=== PATIENT | female | born 1990 | race Caucasian/White ===

== ENCOUNTER 2017-04-20 23:55 | Emergency (ER) | payer OTHER ==
[~2017-04-20] VITALS: Ht 167.6 cm; Wt 107.5 kg
[~2017-04-20 23:55] MED LIST: NITR-58 PO; OMEP20CA16 PO
[2017-04-20 23:59] VITALS: Ht 167.6 cm; Wt 107.5 kg
[2017-04-21 01:27] LABS: URINE BLOOD (Dip) POC 1+ (NEGATIVE)
[2017-04-21 01:42] LABS: ADD SCAN DIFF NO
[2017-04-21 01:45] LABS: BASOPHIL # 0.1 10^3/ul (0.0-0.1); BASOPHILS % 0.8 % (0.0-2.0); EOSINOPHILS # 0.2 10^3/ul (0.0-0.5); HEMATOCRIT 34.4 % (37.0-47.0); HEMOGLOBIN 10.1 g/dl (12.0-16.0); LYMPHOCYTES # 2.6 10^3/ul (0.8-2.9); LYMPHOCYTES % 25.7 % (15.0-51.0); MEAN CORPUSCULAR HGB CONC 29.4 g/dl (32.0-37.0); MEAN CORPUSCULAR VOLUME 71.4 fl (82.0-101.0); MEAN PLATELET VOLUME 9.4 fl (7.4-10.4); MONOCYTE # 0.7 10^3/ul (0.3-0.9); MONOCYTES % 6.7 % (0.0-11.0); NEUTROPHIL # 6.4 10^3/ul (1.6-7.5); NEUTROPHILS % 64.5 % (39.0-77.0); PLATELET COUNT 410 10^3/UL (140-415); RED BLOOD COUNT 4.82 10^6/ul (4.20-5.40); RED CELL DISTRIBUTION WIDTH 17.6 % (11.5-14.5)
[2017-04-21] MEDS ORDERED: AMOX1TAB10 PO (01:49)
[2017-04-21] MEDS ORDERED: IBUP-1542 PO (01:50)
[2017-04-21] MEDS ORDERED: NPH10OT LEFT EAR (01:50)
--- NOTE | 2017-04-21 01:54 | ERD ---
ER Documentation Chief Complaint Date/Time DATE: 04/21/17 TIME: 01:50 Chief Complaint left ear pain radiating to face ; pt has hx of ear infx on left ear (VALERIA HERNANDEZ) HPI This is a 26-year-old female presents to the ER with left ear pain that radiates to the back of her ear that started earlier today. Patient states that pain is severe and intermittent. It is described as a shooting throbbing pain. Patient denies any fevers or chills. She denies any discharge from her ear. Patient states that she is having difficulty in hearing however denies tinnitus. She denies any dizziness. Patient last normal menstrual period was this week. She denies any recent cough or cold symptoms. She denies any headache. Patient denies any dental caries or dental pain. She denies any mouth pain. (VALERIA HERNANDEZ) ROS 12 point review of systems was done, all negative except per HPI. (VALERIA HERNANDEZ) Medications Home Meds Active Scripts Ibuprofen* (Motrin*) 600 Mg Tab, 600 MG PO Q6, #30 TAB Prov:VALERIA HERNANDEZ 04/21/17 Neomycin/Polymyxin/Hydrocort* (Cortisporin* Otic) 10 Ml Susp, 4 DROP LEFT EAR QID for 7 Days, EA Prov:VALERIA HERNANDEZ 04/21/17 Amoxicillin/Potassium Clav (Amox-Clav 875-125 mg Tablet) 875-125 mg Tab, 1 TAB PO BID for 10 Days, #20 TAB Prov:VALERIA HERNANDEZ 04/21/17 Nitrofurantoin Monohyd Macrocr* (Macrobid*) 100 Mg Capsr, 100 MG PO HS for 7 Days Prov:RASHI ARAUZ NP 03/17/15 Omeprazole* (Omeprazole*) 20 Mg Capsule.dr, 20 MG PO DAILY, #30 CAP Prov:RASHI ARAUZ NP 03/17/15 Allergies Allergies: Coded Allergies: No Known Allergy (Unverified , 08/11/14) PMhx/Soc Medical and Surgical Hx: pt denies Medical Hx, pt denies Surgical Hx History of Surgery: No Anesthesia Reaction: No Hx Neurological Disorder: No Hx Respiratory Disorders: No Hx Cardiac Disorders: No Hx Psychiatric Problems: No Hx Miscellaneous Medical Probl: No Hx Alcohol Use: No Hx Substance Use: No Hx Tobacco Use: Yes Smoking Status: Current some day smoker (VALERIA HERNANDEZ) Physical Exam Vitals Vital Signs Date Time Temp Pulse Resp B/P Pulse Ox O2 Delivery O2 Flow Rate FiO2 04/20/17 23:59 99.3 105 20 141/78 99 (RASHI ARAUZ NP) Physical Exam GENERAL: The patient is well developed and appropriate for usual state of health , in no apparent distress. HEENT: Atraumatic. Conjunctivae are pink. Pupils equal, round, and reactive to light. Extraocular muscles are grossly intact. Left external ear canal is red and swollen, tender when inspecting with ear speculum. Positive tragus tenderness, pain with pinna and auricle manipulation. Positive mastoid tenderness. The oropharynx is clear with no erythema or exudates. CHEST: Clear to auscultation bilaterally. There are no rales, wheezes or rhonchi. HEART: Regular rate and rhythm. No murmurs, clicks, rubs or gallops. NEURO: Alert and oriented. (VALERIA HERNANDEZ) Result Diagram: 04/21/1711404/21/17 011 Results 24 hrs Laboratory Tests Test 04/21/17 01:15 04/21/17 01:32 White Blood Count 10.010^3/ul Red Blood Count 4.8210^6/ul Hemoglobin 10.1g/dl Hematocrit 34.4% Mean Corpuscular Volume 71.4fl Mean Corpuscular Hemoglobin 21.0pg Mean Corpuscular Hemoglobin Concent 29.4g/dl Red Cell Distribution Width 17.6% Platelet Count 42191^3/UL Mean Platelet Volume 9.4fl Neutrophils % 64.5% Lymphocytes % 25.7% Monocytes % 6.7% Eosinophils % 2.0% Basophils % 0.8% Nucleated Red Blood Cells % 0.0/100WBC Neutrophils # 6.410^3/ul Lymphocytes # 2.610^3/ul Monocytes # 0.710^3/ul Eosinophils # 0.210^3/ul Basophils # 0.110^3/ul Nucleated Red Blood Cells # 0.010^3/ul Sodium Level 135mmol/L Potassium Level 3.5mmol/L Chloride Level 99mmol/L Carbon Dioxide Level 26mmol/L Anion Gap 14 Blood Urea Nitrogen 14mg/dl Creatinine 0.68mg/dl Glucose Level 101mg/dl Calcium Level 9.9mg/dl Total Bilirubin 0.1mg/dl Direct Bilirubin 0.00mg/dl Indirect Bilirubin 0.1mg/dl Aspartate Amino Transf (AST/SGOT) 26IU/L Alanine Aminotransferase (ALT/SGPT) 49IU/L Alkaline Phosphatase 78IU/L Total Protein 9.2g/dl Albumin 5.1g/dl Globulin 4.10g/dl Albumin/Globulin Ratio 1.24 Bedside Urine pH (LAB) 6.5 Bedside Urine Protein (LAB) Negative Bedside Urine Glucose (UA) Negative Bedside Urine Ketones (LAB) Negative Bedside Urine Blood 1+ Bedside Urine Nitrite (LAB) Negative Bedside Urine Leukocyte Esterase (L Negative Current Medications Medications (Trade) Dose Ordered Sig/Compa Route PRN Reason Start Time Stop Time Status Last Admin Dose Admin Sodium Chloride (NS) 100 ml @ ud STK-MED ONCE .ROUTE 04/21/17 02:35 04/21/17 02:36 DC 04/21/17 02:52 Iohexol (Omnipaque 300mg/ ml) 150 ml STK-MED ONCE .ROUTE 04/21/17 02:35 04/21/17 02:36 DC 04/21/17 02:52 PROCEDURE: CT facial bones with contrast. CLINICAL INDICATION: Left mastoid pain TECHNIQUE: CT of the facial bones was obtained following the intravenous administration of 100 cc Omnipaque 300. Coronal and sagittal re-formations were provided. The administered radiation dose was CTDI vol = 54 mGy, DLP = 990 mGy -cm. COMPARISON: No pertinent prior examinations were submitted for comparison. FINDINGS: There is some skin thickening within the left external auditory canal. A small amount of fluid is noted in the left middle ear cavity. There is some minimal fluid within the left mastoid air cells. There are no destructive osseous changes. The globes are intact. The extraocular muscles and optic nerve complexes are symmetric and normal in caliber. The paranasal sinuses are well aerated. The visualized portions of the brain are unremarkable. No destructive osseous lesion is identified.There is no acute fracture. IMPRESSION: Minimal fluid in the left middle ear cavity and mastoid air cells presumably due to otitis media and possibly early non-coalescent mastoiditis. RPTAT: HIKT .Cheng Parish MD, Date Time Electronically viewed and signed by .Cheng Parish MD, on 04/21/2017 03:11 .T/ CC: VALERIA HERNANDEZ I discussed this patient's case with Dr. Kaye, reviewed patient's CT scan of the facial area, patient has otitis media with possible early non-coalescent mastoiditis (mild mastoiditis), outpatient management is appropriate at this time as per Dr. Kaye's recommendation, and he recommended to give IV Rocephin 2 g here in emergency department, and sent patient home with Augmentin. They and Melissa [facility]ONA already wrote prescriptions for Augmentin, was advised to see ENT specialist for further evaluation and possible management. Patient was advised to return to emergency Department for any worsening symptoms. Patient tolerated medication well. Patient does not have any symptoms of any sepsis at home. Strict return to ER precautions for any worsening symptoms. (RASHI ARAUZ NP) Procedures/MDM This is a 26-year-old female presents to the ER with left ear pain, patient does have inflammation and pain to the external canal. Patient did have some tenderness to the mastoid. CT scan was ordered to rule out mastoiditis, I am awaiting results. If CT scan is negative for mastoiditis patient will be treated for external otitis with Augmentin and Cortisporin. Patient will need to follow-up with primary care doctor within 1-2 days return to ER sooner if symptoms worsen. (VALERIA HERNANDEZ) Departure Diagnosis: Primary Impression: Otitis media Otitis media type: serous Laterality: left Chronicity: acute Recurrence: not specified as recurrent Qualified Code: H65.02 - Acute serous otitis media of left ear, recurrence not specified Additional Impressions: Mastoiditis Laterality: left Qualified Code: H70.92 - Mastoiditis, left Otitis externa Otitis externa type: unspecified type Laterality: left Chronicity: acute Qualified Code: H60.502 - Acute otitis externa of left ear, unspecified type Condition: Stable Patient Instructions: External Ear Infection (Adult) Additional Instructions: Call your primary care doctor TOMORROW for an appointment during the next 1-2 days.See the doctor sooner or return here if your condition worsens before your appointment time. VALERIA HERNANDEZ Apr 21, 2017 01:54 RASHI ARAUZ NP Apr 21, 2017 03:25
[2017-04-21 02:08] LABS: ALBUMIN 5.1 g/dl (3.3-4.9); ALBUMIN/GLOBULIN RATIO 1.24; BILIRUBIN,INDIRECT 0.1 mg/dl (0-1.1); BILIRUBIN,TOTAL 0.1 mg/dl (0.2-1.3); CALCIUM 9.9 mg/dl (8.4-10.2); CREATININE 0.68 mg/dl (0.44-1.00); POTASSIUM 3.5 mmol/L (3.5-5.1); TOTAL PROTEIN 9.2 g/dl (6.1-8.1)
[2017-04-21] MEDS ORDERED: SOD CHLORIDE 0.9% 100 ML ONE (02:35)
[2017-04-21] MEDS ORDERED: IOHEXOL 300MG/ML 150 ML BTL ONE (02:35)
--- NOTE | 2017-04-21 03:12 | RADRPT ---
PROCEDURE: CT facial bones with contrast. CLINICAL INDICATION: Left mastoid pain TECHNIQUE: CT of the facial bones was obtained following the intravenous administration of 100 cc Om nipaque 300. Coronal and sagittal re-formations were provided. The administered radiation dose was CTDI vol = 54 mGy, DLP = 990 mGy-cm. COMPARISON: No pertinent prior examinations were submitted for comparison. FINDINGS: There is some skin thickening within the left external auditory canal. A small amount of fluid is n oted in the left middle ear cavity. There is some minimal fluid within the left mastoid air cells. There are no destructive osseous changes. The globes are intact. The extraocular muscles and optic nerve complexes are symmetric and normal in caliber. The paranasal sinuses are well aerated. The visualized portions of the brain are unremarkable. No destructive osseous lesion is identified.There is no acute fracture. IMPRESSION: Minimal fluid in the left middle ear cavity and mastoid air cells presumably due to otitis media and possibly early non-coalescent mastoiditis. RPTAT: HIKT .Cheng Parish MD, MD Date Time Electronically viewed and signed by .Cheng Parish MD, MD on 04/21/2017 03:11 .T/
[2017-04-21] MEDS ORDERED: CEFTRIAXONE 1 GM/50 ML (PMX) 50 ML IVPB ONE (03:30)
[2017-04-21] MEDS ORDERED: CEFTRIAXONE 2 GM/50 ML (PMX) 50 ML IVPB ONE (03:30)
[2017-04-21] MEDS ORDERED: KETOROLAC 30 MG INJ IV STA (03:30)
[2017-04-21 04:41] VITALS: BP 125/80; PULSE 70; RESP 20; TEMP 98.5
== END 2017-04-21 04:42 | disposition home or self-care (01) ==
LOC: FTE 23:55
DX: H65.02 Acute serous otitis media, left ear (principal); H70.92 Unspecified mastoiditis, left ear; H60.502 Unspecified acute noninfective otitis externa, left ear; F17.210 Nicotine dependence, cigarettes, uncomplicated
CPT/HCPCS: 70486; 80053; 81003; 85025; 96374; 96375; J0696; J1885; Q9967; Z7502; Z7610

== ENCOUNTER 2017-08-13 20:37 | Emergency (ER) | payer OTHER ==
[~2017-08-13] VITALS: Ht 167.6 cm; Wt 108.6 kg
[~2017-08-13 20:37] MED LIST changes: +AMOX1TAB10 PO; +IBUP-1542 PO; +NPH10OT LEFT EAR
[2017-08-13 20:45] VITALS: Ht 167.6 cm; Wt 108.6 kg
[2017-08-13] MEDS ORDERED: ACETAMINOPHEN 500 MG TAB PO STA ×2 (22:24→22:30)
[2017-08-13] MEDS ORDERED: IBUP-1542 PO (22:26)
[2017-08-13] MEDS ORDERED: AMOX1TAB10 PO (22:26)
[2017-08-13] MEDS ORDERED: ACET325T33 PO (22:27)
--- NOTE | 2017-08-13 22:29 | ERD ---
ER Documentation Chief Complaint Chief Complaint fever x 3 days HPI 26-year-old female presents complaining of fever for 3 days as well as sore throat. No cough. No nausea or vomiting. She took Motrin earlier today. Tolerating oral intake. ROS All systems reviewed and are negative except as per history of present illness. Medications Home Meds Active Scripts Acetaminophen* (Tylenol*) 325 Mg Tablet, 2 TAB PO Q6 Y for PAIN AND OR ELEVATED TEMP, #30 TAB Prov:RADHA CLARK PA-C 08/13/17 Ibuprofen* (Motrin*) 600 Mg Tab, 600 MG PO Q6, #30 TAB Prov:RADHA CLARK PA-C 08/13/17 Amoxicillin/Potassium Clav (Amox-Clav 875-125 mg Tablet) 875-125 mg Tab, 1 TAB PO BID for 10 Days, #20 TAB Prov:RADHA CLARK PA-C 08/13/17 Ibuprofen* (Motrin*) 600 Mg Tab, 600 MG PO Q6, #30 TAB Prov:VALERIA HERNANDEZ 04/21/17 Neomycin/Polymyxin/Hydrocort* (Cortisporin* Otic) 10 Ml Susp, 4 DROP LEFT EAR QID for 7 Days, EA Prov:VALERIA HERNANDEZ 04/21/17 Amoxicillin/Potassium Clav (Amox-Clav 875-125 mg Tablet) 875-125 mg Tab, 1 TAB PO BID for 10 Days, #20 TAB Prov:VALERIA HERNANDEZ 04/21/17 Nitrofurantoin Monohyd Macrocr* (Macrobid*) 100 Mg Capsr, 100 MG PO HS for 7 Days Prov:RASHI ARAUZ NP 03/17/15 Omeprazole* (Omeprazole*) 20 Mg Capsule.dr, 20 MG PO DAILY, #30 CAP Prov:RASHI ARAUZ NP 03/17/15 Allergies Allergies: Coded Allergies: No Known Allergy (Unverified , 08/13/17) PMhx/Soc History of Surgery: No Anesthesia Reaction: No Hx Neurological Disorder: No Hx Respiratory Disorders: No Hx Cardiac Disorders: No Hx Psychiatric Problems: No Hx Miscellaneous Medical Probl: No Hx Alcohol Use: No Hx Substance Use: No Hx Tobacco Use: Yes FmHx Family History: No diabetes Physical Exam Vitals Vital Signs Date Time Temp Pulse Resp B/P Pulse Ox O2 Delivery O2 Flow Rate FiO2 08/13/17 20:45 102.2 117 20 146/83 99 Physical Exam INITIAL VITAL SIGNS: Reviewed by me GENERAL: Awake, alert and oriented x 4, well appearing, nontoxic, speaking in full sentences. No acute distress HEAD: Atraumatic NECK: Supple. No masses. Full range of motion. No meningismus. No midline tenderness. EYES: EOMI. PERRL. THROAT: Bilateral tonsillar erythema and edema, scant exudate, uvula midline, no kissing tonsils RESPIRATORY: Clear to auscultation bilaterally. Symmetric chest wall rise. No wheezing or rales. No accessory muscle use. CV: Regular rate and rhythm. No murmurs, rubs, or gallops. Results 24 hrs Current Medications Medications (Trade) Dose Ordered Sig/Compa Route PRN Reason Start Time Stop Time Status Last Admin Dose Admin Acetaminophen (Tylenol Tab) 1,000 mg ONCE STAT PO 08/13/17 22:24 08/13/17 22:25 DC Procedures/MDM Patient presents with fever and sore throat. She does have evidence of pharyngitis which is most likely strep on examination. She was given Tylenol here to bring down her temperature and then discharged with Tylenol Motrin and Augmentin. I doubt she has a peritonsillar abscess. She is tolerating oral intake. Patient counseled regarding my diagnostic impression and care plan. Prior to discharge all questions answered. Pt agrees with treatment plan and understands strict return precautions. Pt is instructed to follow up with primary care provider within 24-48 hours. Precautionary instructions provided including instructions to return to the ER if not improving or for any worsening or changing symptoms or concerns. Departure Diagnosis: Primary Impression: Pharyngitis Condition: Stable Patient Instructions: Pharyngitis, Strep (Presumed) Additional Instructions: Call your primary care doctor TOMORROW for an appointment during the next 1-2 days.See the doctor sooner or return here if your condition worsens before your appointment time. RADHA CLARK PA-C Aug 13, 2017 22:29
[2017-08-13 22:56] VITALS: BP 129/79; PULSE 115; RESP 18; TEMP 100.1
== END 2017-08-13 22:56 | disposition home or self-care (01) ==
LOC: FTE 20:37
DX: J02.9 Acute pharyngitis, unspecified (principal); Z87.891 Personal history of nicotine dependence
CPT/HCPCS: Z7502; Z7610; 99283

== ENCOUNTER 2018-07-12 16:34 | Emergency (ER) | END 2018-07-12 19:49 | disposition home or self-care (01) ==